=== PATIENT | male | born 1990 | race Caucasian/White ===

== ENCOUNTER 2021-10-11 11:07 | Emergency (ER) | payer BC ==
[2021-10-11] MEDS ORDERED: Dextrose 5%-Lactated Ringers 1,000 ML IV SCH ×2 (11:18→12:30)
[2021-10-11] MEDS ORDERED: Dextrose 5%-Lactated Ringers 1,000 ML ONE (11:18)
[2021-10-11 12:34] LABS: ESTIMATED GFR 54 mL/min (>60)
[2021-10-11] MEDS ORDERED: HYDROmorphone 0.5 MG/0.5 ML Syringe IVPUSH ONE (13:29)
[2021-10-11] MEDS ORDERED: Metoclopramide 10 MG/2 ML SDV IVPUSH ONE (13:30)
== END 2021-10-11 14:50 | disposition home or self-care (01) ==
LOC: JD.ED 11:07
DX: T67.1XXA Heat syncope, initial encounter (principal); E86.9 Volume depletion, unspecified; Z79.899 Other long term (current) drug therapy
CPT/HCPCS: 80053; 81001; 82550; 83735; 83874; 83880; 85025; 86140; 93005; 96361; 96374; 96375; 99284; J1170; J2765; J7121; 36415